=== PATIENT | female | born 1970 | race Hispanic/Latino ===

== ENCOUNTER 2016-02-27 21:19 | Inpatient (IN) | payer BC, OTHER ==
[2016-02-27 22:45] LABS: Urine Drugs of Abuse Note Disclamer
[2016-02-27 22:52] LABS: Basophils % (Auto) 0.6 % (0.0-1.8); Hematocrit 34.6 % (30.3-42.9); Hemoglobin 11.1 gm/dl (10.1-14.3); Mean Corpuscular HGB Conc 32 % (30-34); Mean Corpuscular Hemoglobin 28 pg (28-32); Mean Corpuscular Volume 86 fl (79-97); Platelet Count 305 K/mm3 (140-440); Red Cell Distribution Width 16.4 % (13.2-15.2); White Blood Count 10.2 K/mm3 (4.5-11.0)
--- NOTE | 2016-02-27 22:53 | Emergency Department Report ---
HPI - General Chief Complaint: Overdose Time Seen by Provider: 02/27/16 22:36 - HPI HPI: Room 9 The patient is a 45-year-old female presenting with a chief complaint of suicidal ideation and overdose. EMS was reportedly called by the crisis team at the patient admitted to suicidal ideation and overdose attempt. EMS states the patient admitted to drinking alcohol and smoking marijuana but became more lethargic with snoring respirations before they could verify if any other drugs were ingested. Administered Narcan 2 mg IV by EMS prior to arrival with no change. Patient arouses to sternal rub but does not give a history Location: [see above] Duration: [see above] Quality: [see above] Severity: [see above] Modifying factors: [see above] Context: [see above] Mode of transportation: EMS ED Past Medical Hx - Past Medical History Previous Medical History?: Yes Hx Psychiatric Treatment: Yes Additional medical history: HYPOTHYROID - Surgical History Past Surgical History?: Yes Hx Appendectomy: Yes Hx Breast Surgery: Yes (reduction) Additional Surgical History: lap/ knee surgery - Family History Family history: no significant - Social History Smoking Status: Unknown if ever smoked - Medications Home Medications: Home Medications Medication Instructions Recorded Confirmed Last Taken Type Unobtainable 02/28/16 02/28/16 Unknown History ED Review of Systems ROS: Stated complaint: AMS Other details as noted in HPI Comment: Unobtainable due to pts medical conditions Physical Exam - Physical Exam Vital Signs: Vital Signs 02/27/16 02/27/16 21:45 22:22 Temperature 98.5 F Pulse Rate 101 H Respiratory 24 18 Rate Blood Pressure 95/60 O2 Sat by Pulse 98 98 Oximetry Physical Exam: GENERAL: The patient is well-developed well-nourished obese female lying on stretcher appearing intoxicated. A shoulder rales to sternal rub HEENT: Normocephalic. Atraumatic. Pupils 5 mm and reactive bilaterally. NECK: Supple. Trachea midline CHEST/LUNGS: Clear to auscultation. There is no respiratory distress noted. HEART/CARDIOVASCULAR: Regular. There is tachycardia. There is no gallop rub or murmur. ABDOMEN: Abdomen is soft, nontender. Patient has normal bowel sounds. There is no abdominal distention. SKIN: There is no rash. There is no diaphoresis. NEURO: The patient is obtunded but arouses to sternal rub MUSCULOSKELETAL: There is no evidence of acute injury. ED Course Vital Signs 02/27/16 02/27/16 21:45 22:22 Temperature 98.5 F Pulse Rate 101 H Respiratory 24 18 Rate Blood Pressure 95/60 O2 Sat by Pulse 98 98 Oximetry ED Medical Decision Making - Lab Data Result diagrams: 02/27/16 22:41 02/27/16 22:41 Laboratory Tests 02/27/16 02/27/16 02/27/16 22:40 22:40 22:40 WBC RBC Hgb Hct MCV MCH MCHC RDW Plt Count Lymph % (Auto) [place] % (Auto) Eos % (Auto) Baso % (Auto) Lymph # [place] # Eos # Baso # Seg Neutrophils % Seg Neutrophils # Sodium Potassium Chloride Carbon Dioxide Anion Gap BUN Creatinine Estimated GFR BUN/Creatinine Ratio Glucose Calcium Ammonia Total Creatine Kinase CK-MB (CK-2) CK-MB (CK-2) Rel Index Troponin T TSH Free T4 Urine Color Straw Urine Turbidity Clear Urine pH 5.0 Ur Specific [place] 1.004 Urine Protein <15 mg/dl Urine Glucose (UA) Neg Urine Ketones Neg Urine Blood Sm Urine Nitrite Neg Urine Bilirubin Neg Urine Urobilinogen < 2.0 Ur Leukocyte Esterase Neg Urine WBC (Auto) < 1.0 Urine RBC (Auto) < 1.0 Urine HCG, Qual Negative Salicylates Urine Opiates Screen Presumptive negative Urine Methadone Screen Presumptive negative Acetaminophen Ur Barbiturates Screen Presumptive negative Phenytoin Valproic Acid Carbamazepine Ur Phencyclidine Scrn Presumptive negative Ur Amphetamines Screen Presumptive negative U Benzodiazepines Scrn Presumptive negative Alanreed Urine Cocaine Screen Presumptive negative U Marijuana (THC) Screen Presumptive positive Drugs of Abuse Note Disclamer Plasma/Serum Alcohol 02/27/16 02/27/16 02/27/16 22:41 22:41 22:41 WBC RBC Hgb Hct MCV MCH MCHC RDW Plt Count Lymph % (Auto) [place] % (Auto) Eos % (Auto) Baso % (Auto) Lymph # [place] # Eos # Baso # Seg Neutrophils % Seg Neutrophils # Sodium 138 Potassium 4.4 Chloride 101.8 Carbon Dioxide 25 Anion Gap 16 BUN 11 Creatinine 0.5 L Estimated GFR > 60 BUN/Creatinine Ratio 22.00 Glucose 119 H Calcium 8.1 L Ammonia Total Creatine Kinase CK-MB (CK-2) CK-MB (CK-2) Rel Index Troponin T TSH Free T4 Urine Color Urine Turbidity Urine pH Ur Specific [place] Urine Protein Urine Glucose (UA) Urine Ketones Urine Blood Urine Nitrite Urine Bilirubin Urine Urobilinogen Ur Leukocyte Esterase Urine WBC (Auto) Urine RBC (Auto) Urine HCG, Qual Salicylates < 0.3 L Urine Opiates Screen Urine Methadone Screen Acetaminophen Ur Barbiturates Screen Phenytoin Valproic Acid Carbamazepine Ur Phencyclidine Scrn Ur Amphetamines Screen U Benzodiazepines Scrn [place] Urine Cocaine Screen U Marijuana (THC) Screen Drugs of Abuse Note Plasma/Serum Alcohol < 0.01 02/27/16 02/27/16 02/27/16 22:41 22:41 22:41 WBC 10.2 RBC 4.00 Hgb 11.1 Hct 34.6 MCV 86 MCH 28 MCHC 32 RDW 16.4 H Plt Count 305 Lymph % (Auto) 15.7 [place] % (Auto) 7.4 H Eos % (Auto) 0.0 Baso % (Auto) 0.6 Lymph # 1.6 [place] # 0.8 Eos # 0.0 Baso # 0.1 Seg Neutrophils % 76.3 H Seg Neutrophils # 7.8 H Sodium Potassium Chloride Carbon Dioxide Anion Gap BUN Creatinine Estimated GFR BUN/Creatinine Ratio Glucose Calcium Ammonia Total Creatine Kinase 115 CK-MB (CK-2) 1.9 CK-MB (CK-2) Rel Index 1.6 Troponin T < 0.010 TSH Free T4 Urine Color Urine Turbidity Urine pH Ur Specific [place] Urine Protein Urine Glucose (UA) Urine Ketones Urine Blood Urine Nitrite Urine Bilirubin Urine Urobilinogen Ur Leukocyte Esterase Urine WBC (Auto) Urine RBC (Auto) Urine HCG, Qual Salicylates Urine Opiates Screen Urine Methadone Screen Acetaminophen < 15.0 Ur Barbiturates Screen Phenytoin Valproic Acid Carbamazepine Ur Phencyclidine Scrn Ur Amphetamines Screen U Benzodiazepines Scrn [place] Urine Cocaine Screen U Marijuana (THC) Screen Drugs of Abuse Note Plasma/Serum Alcohol 02/27/16 02/27/16 02/27/16 22:41 22:41 23:57 WBC RBC Hgb Hct MCV MCH MCHC RDW Plt Count Lymph % (Auto) [place] % (Auto) Eos % (Auto) Baso % (Auto) Lymph # [place] # Eos # Baso # Seg Neutrophils % Seg Neutrophils # Sodium Potassium Chloride Carbon Dioxide Anion Gap BUN Creatinine Estimated GFR BUN/Creatinine Ratio Glucose Calcium Ammonia 31.0 Total Creatine Kinase CK-MB (CK-2) CK-MB (CK-2) Rel Index Troponin T TSH 4.530 H Free T4 0.95 Urine Color Urine Turbidity Urine pH Ur Specific [place] Urine Protein Urine Glucose (UA) Urine Ketones Urine Blood Urine Nitrite Urine Bilirubin Urine Urobilinogen Ur Leukocyte Esterase Urine WBC (Auto) Urine RBC (Auto) Urine HCG, Qual Salicylates Urine Opiates Screen Urine Methadone Screen Acetaminophen Ur Barbiturates Screen Phenytoin 1.3 L Valproic Acid < 2.8 L Carbamazepine 0.5 L Ur Phencyclidine Scrn Ur Amphetamines Screen U Benzodiazepines Scrn [place] 0.1 Urine Cocaine Screen U Marijuana (THC) Screen Drugs of Abuse Note Plasma/Serum Alcohol - EKG Data -: EKG Interpreted by Me EKG shows normal: sinus rhythm Rate: normal - EKG Data When compared to previous EKG there are: no significant change Interpretation: unchanged when compared t (08/03/2012), other (QRS 74 ms) - Radiology Data Radiology results: image reviewed (CT head) interpreted by me: CT head- no gross hemorrhage seen. Motion artifact - Differential Diagnosis alcohol intoxication, polysubstance abuse, suicidal ideation Critical care attestation.: If time is entered above; I have spent that time in minutes in the direct care of this critically ill patient, excluding procedure time. ED Disposition Clinical Impression: Suicidal ideation, Altered mental status Disposition: OP ADMITTED IP TO THIS HOSP Is pt being admited?: Yes Does the pt Need Aspirin: No Condition: Serious Time of Disposition: 02:03 (CT pending. Hospitalist notified)
[2016-02-27 22:55] LABS: Bilirubin,Urine NEG (Negative); Blood,Urine SM (Negative); Ketones,Urine NEG (Negative); Leukocyte Esterase,Urine NEG (Negative); Nitrite,Urine NEG (Negative); Protein,Urine <15 mg/dL mg/dL (Negative); RBC,Urine < 1.0 /HPF (0.0-6.0); Urobilinogen,Urine < 2.0 mg/dL (<2.0); WBC,Urine < 1.0 /HPF (0.0-6.0)
[2016-02-27 23:11] LABS: Anion Gap 16 mmol/L; Blood Urea Nitrogen 11 mg/dL (7-17); Calcium 8.1 mg/dL (8.4-10.2); Carbon Dioxide 25 mmol/L (22-30); Chloride 101.8 mmol/L (98-107); Glucose 119 mg/dL (65-100); Potassium 4.4 mmol/L (3.6-5.0); Sodium 138 mmol/L (137-145)
[2016-02-28 00:16] LABS: Creatine Kinase MB 1.9 ng/mL (0.0-4.0)
[2016-02-28 00:18] LABS: Creatine Kinase 115 units/L (30-135)
[2016-02-28 00:32] LABS: Lithium 0.1 mmol/L (0.0-1.2)
[2016-02-28 00:35] LABS: Carbamazepine (Tegretol) 0.5 ug/mL (4-12); Valproate < 2.8 ug/mL (50-100)
--- NOTE | 2016-02-28 02:12 | History and Physical Report ---
History of Present Illness Chief complaint: I took some pills History of present illness: 45 YO Female with Hypothyroidism, Obesity, Depression presents to ED for evaluation. Pt states that she has been drinking ETOH and smoking marijuana. Pt also states that she took an undetermined quantity and type of pills in an attempt to take her own life. Pt seen and evaluated in ED, but pt became lethargic-stupurous on exam. Administered Narcan 2 mg IV by EMS prior to arrival with no change. Patient arouses to sternal rub but does not give a history Past History Past Medical History: hypothyroidism, other (depression) Past Surgical History: appendectomy (Knee surgery, breast reduction) Social history: single, lives with family. denies: smoking, alcohol abuse, prescription drug abuse Family history: diabetes, hypertension Medications and Allergies Allergies Allergy/AdvReac Type Severity Reaction Status Date / Time Unable to Assess Allergy Unverified 02/27/16 22:08 Home Medications Medication Instructions Recorded Confirmed Last Taken Type Unobtainable 02/28/16 02/28/16 Unknown History Exam - Constitutional Vitals: Temp Pulse Resp BP Pulse Ox 98.5 F 100 H 24 100/59 99 02/27/16 21:45 02/28/16 00:00 02/27/16 23:00 02/28/16 00:00 02/28/16 00:00 General appearance: Present: obese - EENT Eyes: Present: PERRL ENT: hearing intact, clear oral mucosa - Neck Neck: Present: supple, normal ROM - Respiratory Respiratory effort: normal Respiratory: bilateral: CTA - Cardiovascular Heart Sounds: Present: S1 & S2. Absent: rub, click - Extremities Extremities: pulses symmetrical, No edema Peripheral Pulses: within normal limits - Abdominal General gastrointestinal: Present: soft, non-tender, non-distended, normal bowel sounds Female genitourinary: Present: normal - Integumentary Integumentary: Present: clear, warm, dry - Musculoskeletal Musculoskeletal: gait normal, strength equal bilaterally - Psychiatric Psychiatric: appropriate mood/affect, intact judgment & insight - Neurologic Neurologic: CNII-XII intact, moves all extremities Results - Labs CBC & Chem 7: 02/27/16 22:41 02/27/16 22:41 Labs: Abnormal lab results 02/27/16 02/27/16 02/27/16 Range/Units 22:41 22:41 22:41 RDW 16.4 H (13.2-15.2) % [place] % (Auto) 7.4 H (0.0-7.3) % Seg Neutrophils % 76.3 H (40.0-70.0) % Seg Neutrophils # 7.8 H (1.8-7.7) K/mm3 Creatinine 0.5 L (0.7-1.2) mg/dL Glucose 119 H (65-100) mg/dL Calcium 8.1 L (8.4-10.2) mg/dL TSH (0.270-4.200) mlU/mL Salicylates < 0.3 L (2.8-20.0) mg/dL Phenytoin (10.0-20.0) mg/L Valproic Acid (50-100) ug/mL Carbamazepine (4-12) ug/mL 02/27/16 02/27/16 Range/Units 22:41 22:41 RDW (13.2-15.2) % [place] % (Auto) (0.0-7.3) % Seg Neutrophils % (40.0-70.0) % Seg Neutrophils # (1.8-7.7) K/mm3 Creatinine (0.7-1.2) mg/dL Glucose (65-100) mg/dL Calcium (8.4-10.2) mg/dL TSH 4.530 H (0.270-4.200) mlU/mL Salicylates (2.8-20.0) mg/dL Phenytoin 1.3 L (10.0-20.0) mg/L Valproic Acid < 2.8 L (50-100) ug/mL Carbamazepine 0.5 L (4-12) ug/mL Assessment and Plan - Patient Problems (1) Encephalopathy acute Current Visit: Yes Status: Acute Plan to address problem: Poison control notified, continue current care, IVF, supportive care. (2) Suicidal ideation Current Visit: Yes Status: Acute Plan to address problem: [address], Psych consulted. (3) DVT prophylaxis Current Visit: Yes Status: Acute
--- NOTE | 2016-02-28 02:31 | Cat Scan Report ---
FINAL REPORT PROCEDURE: CT HEAD/BRAIN WO CON TECHNIQUE: Computerized tomography of the head was performed without contrast material. HISTORY: altered mental status COMPARISON: 11/25/2011 FINDINGS: Skull and scalp: Normal. Paranasal sinuses: Normal. Ventricles and subarachnoid spaces: Normal. Cerebrum: No evidence of hemorrhage, acute infarction or mass . Cerebellum and brainstem: No evidence of hemorrhage, acute infarction or mass. Vasculature: Normal. Comments: None. IMPRESSION: Normal Examination
[2016-02-28] MEDS ORDERED: NACL 0.45% 1000 ML 1,000 ML IV SCH (03:00)
--- NOTE | 2016-02-28 07:52 | Admit Criteria Form ---
<EMMANUELLE BECK - Last Filed: 02/28/16 18:06> Admission Criteria Documentation: MENTAL STATUS CHANGE Clinical Indications for Inpatient Care (Place 'X' for any and all applicable criteria): Ongoing inpatient care may be needed for ANY ONE of the following(1)(2)(3)(5)(6) : [ X]I. Suspected serious etiology (eg, medical disorder, ROW BOSS event) of mental status change [ ]II. Danger to self or others not manageable at lower level of care [ ]III. Grave disability (eg, inability to perform self care necessary at lower level of care) [ ]IV. Agitation or inappropriate behavior interfering with care for primary condition (eg, attempting to discontinue lines or drains prematurely, unable to cooperate with respiratory care) [ ]V. Delirium [A] [D][E] as described by ANY ONE of the following(26): [ ]a) Delirium due to alcohol or sedative [F] withdrawal [ ]b) Delirium of uncertain etiology that has not responded to appropriate empiric treatment [ ]c) Delirium that prevents performance of a life-sustaining function (eg, feeding or hydrating oneself) [ X]. General contraindications and/or Inappropriate clinical situations for Observational Care in patients with Mental Status Change, when ANY ONE of the following is required: [X ]a) Prediction of prolongation of LOS based on ANY ONE of the following may be considered as a contraindication for observational care 2, 3, 4, 5, 6, 7, 8, 9, 10, 11 [ ]i) Age > 65 yrs. [X ]ii) Patient arriving by ambulance [ ]iii) Patient with high acuity [ ]iv) Patient requiring vital sign monitoring [ ]v) Patient on IV medication [ ]b) Systolic blood pressures 180mmHg 3,12 [ ]c) Patient with altered mental status including delirium and other alteration of consciousness, (3) [ ]d) Patient whose discharge disposition will be to a intermediate home or rehabilitation home should not be managed in Emergency Department Observation Unit. CMS rule requires 3 days hospital stay before such placement.3,13 [ ]e) Patient with failure to thrive due to broad array of etiologies 3,16,17 [ ]f) Inability to ambulate 3,14 Extended stay beyond goal length of stay for the primary condition may be needed until ALL of the following are present(3)(5): [ ]a) Underlying medical etiology of mental status change is absent, or has been established and adequately treated [ ]b) Danger to self or others is absent or manageable at lower level of care. [ ]c) Behavior crisis management, including physical or chemical restraints, is not required or available at lower level of car [ ]d) Substance or alcohol withdrawal is absent or manageable at lower level of care. [ ]e) Behavioral symptoms (eg, agitation, somnolence, inappropriate behavior) are absent, or are manageable at lower level of care. The original [facility] [employer] content created by [facility] has been revised. The portions of the content which have been revised are identified through the use of italic text or in bold, and [facility] has neither reviewed nor approved the modified material. All other unmodified content is copyright [email or web address]. Please see references footnoted in the original [facility] [employer] edition 2016 Admission Criteria Met: Yes <ONDINA LEE - Last Filed: 03/03/16 05:32> Admission Criteria Met: Yes
--- NOTE | 2016-02-28 09:35 | Event Note ---
Date: 02/28/16 Patient with suicidal attempt with drug overdose. She was seen and examined. Psych to see.
[2016-02-28] MEDS ORDERED: PROVENTIL IH PRN (21:39)
[2016-02-28] MEDS: DUONEB 0.5 MG-3 MG/3 ML SOLN IH SCH (21:41)
[2016-02-29] MEDS ORDERED: D5NS 1,000 ML IV SCH (03:00)
[2016-02-29] MEDS: DUONEB 0.5 MG-3 MG/3 ML SOLN IH SCH ×3 (07:41→20:37)
[2016-02-29] MEDS ORDERED: DUONEB 0.5 MG-3 MG/3 ML SOLN IH SCH (08:00)
--- NOTE | 2016-02-29 16:08 | Event Note ---
Date: 02/29/16 Patient is medically cleared for discharge to inpatient psych.
--- NOTE | 2016-02-29 16:09 | Progress Note ---
Assessment and Plan Assessment and plan: Suicidal attempt with intentional drug overdose. Patient admits to taking multiple pills Seroquel, alcohol and marijuana combined. She is currently awake alert oriented. She stable and medically cleared to transfer to inpatient psych. Depression Hypothyroidism Full CODE STATUS History Interval history: Feels better, patient admits she took a [place], alcohol and marijuana, Hospitalist Physical - Physical exam Narrative exam: Gen appearance: not in acute distress, morbidly obese HEENT: Normocephalic atraumatic Neck: supple no JVD Lungs:clear to auscultation bilaterally no crackles or wheezes Heart:S1-S2 regular no murmurs rubs or gallops Abdomen :soft, nontender, nondistended normal bowel sounds Extremities:no edema no clubbing or cyanosis Neuro awake alert,oriented x 3. No focal neurologic signs. - Constitutional Vitals: Temp Pulse Resp BP Pulse Ox 99.4 F 110 H 18 121/73 94 02/29/16 07:00 02/29/16 14:25 02/29/16 14:25 02/29/16 07:00 02/29/16 10:00 General appearance: Present: obese Results - Labs CBC & Chem 7: 02/27/16 22:41 02/27/16 22:41 Labs: Laboratory Last Values WBC 10.2 K/mm3 (4.5-11.0) 02/27/16 22:41 RBC 4.00 M/mm3 (3.65-5.03) 02/27/16 22:41 Hgb 11.1 gm/dl (10.1-14.3) 02/27/16 22:41 Hct 34.6 % (30.3-42.9) 02/27/16 22:41 MCV 86 fl (79-97) 02/27/16 22:41 MCH 28 pg (28-32) 02/27/16 22:41 MCHC 32 % (30-34) 02/27/16 22:41 RDW 16.4 % (13.2-15.2) H 02/27/16 22:41 Plt Count 305 K/mm3 (140-440) 02/27/16 22:41 Lymph % (Auto) 15.7 % (13.4-35.0) 02/27/16 22:41 [place] % (Auto) 7.4 % (0.0-7.3) H 02/27/16 22:41 Eos % (Auto) 0.0 % (0.0-4.3) 02/27/16 22:41 Baso % (Auto) 0.6 % (0.0-1.8) 02/27/16 22:41 Lymph # 1.6 K/mm3 (1.2-5.4) 02/27/16 22:41 [place] # 0.8 K/mm3 (0.0-0.8) 02/27/16 22:41 Eos # 0.0 K/mm3 (0.0-0.4) 02/27/16 22:41 Baso # 0.1 K/mm3 (0.0-0.1) 02/27/16 22:41 Seg Neutrophils % 76.3 % (40.0-70.0) H 02/27/16 22:41 Seg Neutrophils # 7.8 K/mm3 (1.8-7.7) H 02/27/16 22:41 Sodium 138 mmol/L (137-145) 02/27/16 22:41 Potassium 4.4 mmol/L (3.6-5.0) 02/27/16 22:41 Chloride 101.8 mmol/L (98-107) 02/27/16 22:41 Carbon Dioxide 25 mmol/L (22-30) 02/27/16 22:41 Anion Gap 16 mmol/L 02/27/16 22:41 BUN 11 mg/dL (7-17) 02/27/16 22:41 Creatinine 0.5 mg/dL (0.7-1.2) L 02/27/16 22:41 Estimated GFR > 60 ml/min 02/27/16 22:41 BUN/Creatinine Ratio 22.00 % 02/27/16 22:41 Glucose 119 mg/dL (65-100) H 02/27/16 22:41 POC Glucose 110 (70-105) H 02/29/16 10:52 Calcium 8.1 mg/dL (8.4-10.2) L 02/27/16 22:41 Ammonia 31.0 umol/L (25-60) 02/27/16 23:57 Total Creatine Kinase 115 units/L (30-135) 02/27/16 22:41 CK-MB (CK-2) 1.9 ng/mL (0.0-4.0) 02/27/16 22:41 CK-MB (CK-2) Rel Index 1.6 (0-4) 02/27/16 22:41 Troponin T < 0.010 ng/mL (0.00-0.029) 02/27/16 22:41 TSH 4.530 mlU/mL (0.270-4.200) H 02/27/16 22:41 Free T4 0.95 ng/dL (0.76-1.46) 02/27/16 22:41 Urine Color Straw (Yellow) 02/27/16 22:40 Urine Turbidity Clear (Clear) 02/27/16 22:40 Urine pH 5.0 (5.0-7.0) 02/27/16 22:40 Ur Specific [place] 1.004 (1.003-1.030) 02/27/16 22:40 Urine Protein <15 mg/dl mg/dL (Negative) 02/27/16 22:40 Urine Glucose (UA) Neg mg/dL (Negative) 02/27/16 22:40 Urine Ketones Neg mg/dL (Negative) 02/27/16 22:40 Urine Blood Sm (Negative) 02/27/16 22:40 Urine Nitrite Neg (Negative) 02/27/16 22:40 Urine Bilirubin Neg (Negative) 02/27/16 22:40 Urine Urobilinogen < 2.0 mg/dL (<2.0) 02/27/16 22:40 Ur Leukocyte Esterase Neg (Negative) 02/27/16 22:40 Urine WBC (Auto) < 1.0 /HPF (0.0-6.0) 02/27/16 22:40 Urine RBC (Auto) < 1.0 /HPF (0.0-6.0) 02/27/16 22:40 Urine HCG, Qual Negative (Negative) 02/27/16 22:40 Salicylates < 0.3 mg/dL (2.8-20.0) L 02/27/16 22:41 Urine Opiates Screen Presumptive negative 02/27/16 22:40 Urine Methadone Screen Presumptive negative 02/27/16 22:40 Acetaminophen < 15.0 ug/mL (10.0-30.0) 02/27/16 22:41 Ur Barbiturates Screen Presumptive negative 02/27/16 22:40 Phenytoin 1.3 mg/L (10.0-20.0) L 02/27/16 22:41 Valproic Acid < 2.8 ug/mL (50-100) L 02/27/16 22:41 Carbamazepine 0.5 ug/mL (4-12) L 02/27/16 22:41 Ur Phencyclidine Scrn Presumptive negative 02/27/16 22:40 Ur Amphetamines Screen Presumptive negative 02/27/16 22:40 U Benzodiazepines Scrn Presumptive negative 02/27/16 22:40 [place] 0.1 mmol/L (0.0-1.2) 02/27/16 22:41 Urine Cocaine Screen Presumptive negative 02/27/16 22:40 U Marijuana (THC) Screen Presumptive positive 02/27/16 22:40 Drugs of Abuse Note Disclamer 02/27/16 22:40 Plasma/Serum Alcohol < 0.01 gm% (0-0.07) 02/27/16 22:41
[2016-02-29 16:48] VITALS: BP 119/77
[2016-02-29] MEDS: HEPARIN SUB-Q SCH ×2 (18:21→21:02)
--- NOTE | 2016-02-29 23:15 | Discharge Summary ---
Providers - Providers Date of Admission: 02/28/16 02:12 Date of discharge: 02/29/16 Attending physician: BOLIVAR JOE 02/28/16 02:16 psychiatry consult [Consult to Mental Health] [CONS] Routine Reason For Exam: suicidal ideation Place consult to:: psych Notified:: MENTAL HEALTH Phone number called:: [phone] Was contact made?: Yes If yes, spoke with:: ARMINDA Time called:: 08:26 Comment:: COMPLETED - [facility] Primary care physician: WEIGHER OPERATOR Hospitalization Condition: Fair Disposition: DC/TX PSY HOSP/PSY UNIT - Discharge Diagnoses (1) Drug overdose, intentional Status: Acute (2) Suicide attempt Status: Acute Core Measure Documentation - Palliative Care Palliative Care/ Comfort Measures: Not Applicable - Core Measures Any of the following diagnoses?: none Exam - Physical Exam Narrative exam: Gen appearance: not in acute distress, morbidly obese HEENT: Normocephalic atraumatic Neck: supple no JVD Lungs:clear to auscultation bilaterally no crackles or wheezes Heart:S1-S2 regular no murmurs rubs or gallops Abdomen :soft, nontender, nondistended normal bowel sounds Extremities:no edema no clubbing or cyanosis Neuro awake alert,oriented x 3. No focal neurologic signs. - Constitutional Vitals: Temp Pulse Resp BP Pulse Ox 99.9 F H 104 H 22 119/77 95 02/29/16 16:46 02/29/16 20:00 02/29/16 20:00 02/29/16 16:47 02/29/16 16:46 Plan Activity: no restrictions Diet: low fat, low cholesterol Follow up with: LORENZA CRAFT MD [Primary Care Provider] - 3-5 Days
== END 2016-02-29 21:30 | DRG 917 ==
LOC: ED 21:19 → 3A 02-28 02:12 → 2B-SURG 02-28 06:42
PROVIDERS: ADMIT Internal Medicine; ATTEND Internal Medicine
DX: T43.592A Poisoning by other antipsychotics and neuroleptics, intentional self-harm, initial encounter (principal); G93.40 Encephalopathy, unspecified; Z68.41 Body mass index [BMI] 40.0-44.9, adult; E03.9 Hypothyroidism, unspecified; T51.92XA Toxic effect of unspecified alcohol, intentional self-harm, initial encounter; F12.90 Cannabis use, unspecified, uncomplicated; E66.9 Obesity, unspecified; F32.9 Major depressive disorder, single episode, unspecified; Z90.49 Acquired absence of other specified parts of digestive tract; Z98.890 Other specified postprocedural states; Z83.3 Family history of diabetes mellitus; Z82.49 Family history of ischemic heart disease and other diseases of the circulatory system; Y92.89 Other specified places as the place of occurrence of the external cause
CPT/HCPCS: 36415; 70450; 80048; 80156; 80164; 80178; 80185; 80307; 80320; 81001; 81025; 82140; 82550; 82553; 82962; 84439; 84443; 84484; 85025; 93005; 93010; 94640; 94760; G0480; J7042

== ENCOUNTER 2016-03-25 20:02 | Emergency (ER) | payer OTHER ==
[2016-03-25] MEDS ORDERED: FEOSOL PO ONE (20:21)
[2016-03-25 21:22] LABS: Basophils % (Auto) 0.2 % (0.0-1.8); Eosinophils % (Auto) 0.1 % (0.0-4.3); Hematocrit 40.8 % (30.3-42.9); Hemoglobin 13.1 gm/dl (10.1-14.3); Mean Corpuscular HGB Conc 32 % (30-34); Mean Corpuscular Hemoglobin 27 pg (28-32); Mean Corpuscular Volume 85 fl (79-97); Platelet Count 289 K/mm3 (140-440); Red Blood Count 4.79 M/mm3 (3.65-5.03); Red Cell Distribution Width 16.6 % (13.2-15.2); White Blood Count 10.8 K/mm3 (4.5-11.0)
[2016-03-25 21:33] LABS: BUN/Creatinine Ratio 15.71; Blood Urea Nitrogen 11 mg/dL (7-17); Calcium 9.3 mg/dL (8.4-10.2); Carbon Dioxide 25 mmol/L (22-30); Glucose 91 mg/dL (65-100)
[2016-03-25 21:34] LABS: Chloride 99.1 mmol/L (98-107); Potassium 4.7 mmol/L (3.6-5.0); Sodium 141 mmol/L (137-145)
[2016-03-25 21:35] LABS: Anion Gap 22 mmol/L
--- NOTE | 2016-03-25 21:40 | Emergency Department Report ---
ED Psych HPI - General Chief Complaint: Psych Stated Complaint: MH EVAL Time Seen by Provider: 03/25/16 20:14 Source: patient, EMS Mode of arrival: Ambulatory Limitations: No Limitations - History of Present Illness Initial Comments: 45-year-old female presents to the emergency department via EMS for mental health evaluation. Patient states that she has been cutting her right wrist. She denies trying to kill herself. She states she was cutting herself to help relieve the emotional pain. She denies auditory or visual hallucinations. There are no other complaints. -: Gradual, This afternoon Associated Psychiatric Symptoms: depression History of same: Yes Quality: constant Improves With: none Worsens With: none Associated Symptoms: denies other symptoms - Related Data Home Medications Medication Instructions Recorded Confirmed Last Taken Buspirone HCl [busPIRone] 15 mg PO BID 03/25/16 03/25/16 Unknown Ciprofloxacin [Cipro] 500 mg PO BID 03/25/16 03/25/16 Unknown Ferrous Sulfate [Feosol] 325 mg PO QDAY 03/25/16 03/25/16 Unknown Levothyroxine [Synthroid] 125 mcg PO QAM 03/25/16 03/25/16 Unknown Quetiapine Fumarate [QUEtiapine 300 mg PO QDAY 03/25/16 03/25/16 Unknown Fumarate] Venlafaxine HCl [Venlafaxine HCl 150 mg PO DAILY 03/25/16 03/25/16 Unknown ER] lamoTRIgine [lamoTRIgine ER] 200 mg PO DAILY 03/25/16 03/25/16 Unknown Allergies Allergy/AdvReac Type Severity Reaction Status Date / Time Sulfa (Sulfonamide Allergy Vomiting Verified 03/25/16 21:33 Antibiotics) ED Review of Systems ROS: Stated complaint: MH EVAL Other details as noted in HPI Comment: All other systems reviewed and negative Skin: other (abrasions) Psychiatric: as per HPI, depression ED Past Medical Hx - Past Medical History Previous Medical History?: Yes Hx Congestive Heart Failure: No Hx Diabetes: No Hx Psychiatric Treatment: Yes (Depression) Hx Asthma: No Hx COPD: No Hx HIV: No Additional medical history: HYPOTHYROID - Surgical History Past Surgical History?: Yes Hx Appendectomy: Yes Hx Breast Surgery: Yes (reduction) Additional Surgical History: lap/ knee surgery - Family History Family history: no significant - Social History Smoking Status: Current Every Day Smoker Substance Use Type: Alcohol, Marijuana - Medications Home Medications: Home Medications Medication Instructions Recorded Confirmed Last Taken Type Buspirone HCl [busPIRone] 15 mg PO BID 03/25/16 03/25/16 Unknown History Ciprofloxacin [Cipro] 500 mg PO BID 03/25/16 03/25/16 Unknown History Ferrous Sulfate [Feosol] 325 mg PO QDAY 03/25/16 03/25/16 Unknown History Levothyroxine [Synthroid] 125 mcg PO QAM 03/25/16 03/25/16 Unknown History Quetiapine Fumarate [QUEtiapine 300 mg PO QDAY 03/25/16 03/25/16 Unknown History Fumarate] Venlafaxine HCl [Venlafaxine HCl 150 mg PO DAILY 03/25/16 03/25/16 Unknown History ER] lamoTRIgine [lamoTRIgine ER] 200 mg PO DAILY 03/25/16 03/25/16 Unknown History ED Physical Exam - General Limitations: No Limitations General appearance: alert, in no apparent distress - Head Head exam: Present: atraumatic, normocephalic - Eye Eye exam: Present: normal appearance, PERRL, EOMI - ENT ENT exam: Present: normal exam, normal orophraynx, mucous membranes moist - Neck Neck exam: Present: normal inspection, full ROM. Absent: tenderness - Respiratory Respiratory exam: Present: normal lung sounds bilaterally. Absent: respiratory distress - Cardiovascular Cardiovascular Exam: Present: regular rate, normal rhythm, normal heart sounds - GI/Abdominal GI/Abdominal exam: Present: soft, normal bowel sounds. Absent: distended, tenderness - Extremities Exam Extremities exam: Present: normal inspection, full ROM. Absent: tenderness - Back Exam Back exam: Present: normal inspection, full ROM. Absent: tenderness - Neurological Exam Neurological exam: Present: alert, oriented X3. Absent: motor sensory deficit - Psychiatric Psychiatric exam: Present: depressed, anxious. Absent: homicidal ideation, suicidal ideation - Skin Skin exam: Present: warm, dry, other (multiple superficial, linear abrasions noted to the ventral aspect of the right wrist. No active bleeding noted.) ED Course Vital Signs 03/25/16 21:23 Temperature 98.3 F Pulse Rate 93 H Blood Pressure 137/93 O2 Sat by Pulse 97 Oximetry - Reevaluation(s) Reevaluation #1: 03/25/16 22:33 Patient has been evaluated by mental health. Patient is now stating that she does want to . Patient was recently discharged from [facility] and has failed outpatient treatment. Form 1013 has been signed and placed on the patient's chart. Patient is awaiting placement. ED Medical Decision Making - Lab Data Result diagrams: 03/25/16 20:37 03/25/16 20:37 - Differential Diagnosis depression, suicide gesture, cutting behavior Critical care attestation.: If time is entered above; I have spent that time in minutes in the direct care of this critically ill patient, excluding procedure time. ED Disposition Clinical Impression: Depression Qualifiers: Depression Type: major depressive disorder Major depression recurrence: recurrent Active/Remission status: currently active Major depression episode severity: moderate Qualified Code(s): F33.1 - Major depressive disorder, recurrent, moderate Suicide gesture Qualifiers: Encounter type: initial encounter Qualified Code(s): X83.8XXA - Intentional self-harm by other specified means, initial encounter Disposition: DC/TX PSY HOSP/PSY UNIT Is pt being admited?: No Condition: Stable Time of Disposition: 22:34
[2016-03-25] MEDS: BUSPAR PO SCH ×2 (22:38)
[2016-03-26 01:08] LABS: Urine Drugs of Abuse Note Disclamer
[2016-03-26 01:20] LABS: Bilirubin,Urine NEG (Negative); Blood,Urine MOD (Negative); Ketones,Urine NEG (Negative); Leukocyte Esterase,Urine NEG (Negative); Mucus,Urine FEW /HPF; Nitrite,Urine NEG (Negative); Protein,Urine <15 mg/dL mg/dL (Negative); Urobilinogen,Urine < 2.0 mg/dL (<2.0)
[2016-03-26 07:25] VITALS: BP 116/74
--- NOTE | 2016-03-26 13:46 | Event Note ---
Date: 03/26/16 Vital signs are reviewed and appreciated. Awaiting psychiatric placement. Vital Signs 03/25/16 03/25/16 03/26/16 21:23 22:00 00:42 Temperature 98.3 F Pulse Rate 93 H Respiratory Rate Blood Pressure 137/93 117/82 117/82 Blood Pressure [Right] O2 Sat by Pulse 97 96 90 Oximetry 03/26/16 03/26/16 03/26/16 01:00 02:00 03:00 Temperature Pulse Rate Respiratory Rate Blood Pressure 129/86 121/75 120/63 Blood Pressure [Right] O2 Sat by Pulse 95 92 92 Oximetry 03/26/16 03/26/16 03/26/16 03:02 04:00 04:08 Temperature Pulse Rate Respiratory 20 Rate Blood Pressure 120/63 129/79 Blood Pressure [Right] O2 Sat by Pulse 92 99 Oximetry 03/26/16 03/26/16 03/26/16 05:00 05:12 07:24 Temperature 98.3 F Pulse Rate 74 Respiratory 16 Rate Blood Pressure 138/89 138/89 Blood Pressure 116/74 [Right] O2 Sat by Pulse 91 94 96 Oximetry 03/26/16 07:26 Temperature Pulse Rate Respiratory 16 Rate Blood Pressure Blood Pressure [Right] O2 Sat by Pulse 96 Oximetry
[2016-03-26] MEDS: BUSPAR PO SCH (15:29)
== END 2016-03-26 15:30 ==
LOC: EEVIPCON 20:02 → ED 20:02
DX: F33.1 Major depressive disorder, recurrent, moderate (principal); F17.200 Nicotine dependence, unspecified, uncomplicated; E03.9 Hypothyroidism, unspecified; F12.90 Cannabis use, unspecified, uncomplicated; X83.8XXA Intentional self-harm by other specified means, initial encounter; Z88.2 Allergy status to sulfonamides
CPT/HCPCS: 36415; 80048; 80307; 81001; 81025; 85025; 99285; G0480; 80320